=== PATIENT | male | born 1965 | race Caucasian/White ===

== ENCOUNTER 2025-05-05 12:06 | Observation (INO) | payer OTHER, SELFPAY ==
[2025-05-05] VITALS (12 sets, daily range): BP systolic 129–159; BP diastolic 74–89; PULSE 72–84; RESP 16–20; TEMP 36.7–36.9; O2SAT 95–99; BMI 34.8
--- NOTE | ~2025-05-05 | XR_ITS ---
EXAMINATION: XR chest 2V DATE: 05/05/2025 12:59 INDICATION: Chest pressure TECHNIQUE: PA and lateral views of the chest were obtained. COMPARISON: None FINDINGS: Calcified nodule left midlung zone consistent with old granulomatous disease. The cardiomediastinal silhouette is normal. Mild thoracic spondylosis with chronic mild anterior wedging of a few lower thoracic vertebral bodies. IMPRESSION: 1. No acute cardiopulmonary disease. Reviewed, dictated and finalized at location [facility]
--- NOTE | 2025-05-05 12:06 | ECG_ITS ---
Test Date: 2025-05-05 12:14:21 Measurements Intervals [place] Rate: 77 P: 41 [place]: 148 QRS: -1 QRSD: 85 T: 31 QT: 365 QTc: 413 Interpretive Statements SINUS RHYTHM LOW QRS VOLTAGE IN PRECORDIAL LEADS POSSIBLE RIGHT VENTRICULAR CONDUCTION DELAY BORDERLINE ECG No previous ECG available for comparison Electronically Signed On 05-05-2025 12:15:19 JEWELRY DRILLING MACHINE OPERATOR by Flavio Mckeon D.O.
[2025-05-05 12:36] LABS: Hematocrit 43.4 % (42.0-52.0); Hemoglobin 14.9 g/dL (14.0-18.0); Immature Granulocyte Percent A 0.3 % (0-0.5); Lymphocytes Absolute Auto 1.22 K/mm3 (0.9-3.2); Mean Corpuscular HGB Conc 34.3 g/dl (32-36); Mean Corpuscular Hemoglobin 28.9 pg (26-34); Mean Corpuscular Volume 84.1 fl (80-100); Nucleated Red Blood Cells Absolute Auto 0.000 K/mm3 (0.0-0.012); Nucleated Red Blood Cells Perc 0.0 % (0.0-0.2); Platelet Count Result 221 k/mm3 (150-375); Red Blood Count 5.16 M/mm3 (4.6-6.20); White Blood Count 6.3 K/mm3 (4.5-10.0)
[2025-05-05 12:49] LABS: Alanine Aminotransferase 27 U/L (6-50); Albumin Level 4.6 g/dL (3.5-5.1); Alkaline Phosphatase 56 U/L (38-126); Anion Gap 9 mmol/L (4-12); Aspartate Amino Transferase 31 U/L (17-59); Bilirubin,Total 0.6 mg/dL (0.2-1.3); Blood Urea Nitrogen 20 mg/dL (9-20); Calcium 9.1 mg/dL (8.4-10.2); Carbon Dioxide 25 mmol/L (22-30); Chloride 103 mmol/L (98-107); Estimated CRCL calculation 92 ml/min; Estimated Glomerular Filt Rate > 60; Glucose 131 mg/dL (65-110); Lipase 82 U/L (23-300); Potassium 4.1 mmol/L (3.4-5.0); Sodium 137 mmol/L (137-145); Total Protein 7.7 g/dL (6.3-8.2)
[2025-05-05 12:51] LABS: INR 1.0; Prothrombin Time 12.7 Seconds (11.1-14.7)
[2025-05-05 12:52] LABS: Partial Thromboplastin Time 25.4 Seconds (22.3-36.8)
[2025-05-05 13:00] LABS: Troponin I < 0.012 ng/mL (0.000-0.034)
--- NOTE | 2025-05-05 14:36 | ED.CHESTPAIN ---
HPI - Chest Pain General Chief Complaint: Chest Pain <KAMARI Cordova Last Filed: 05/05/25 14:48> Stated Complaint: chest pain <KAMARI Cordova Last Filed: 05/05/25 14:48> Time Seen by Provider: 05/05/25 14:36 <Michelle Noe PA-C - Last Filed: 05/05/25 14:48> Focused HPI: Patient is a 60 y/o male who presents to the ED with c/o CP. Patient reports he was carrying a table up his stairs around noon today when he began having midsternal chest tightness, radiated through to his back between his shoulder blades. States pain lasted approx 10-15 minutes before improving. Feels slight discomfort in midsternal chest currently. Denied feeling SOB, dizzy, nauseous, diaphoretic with the pain. States 1 week ago, had a similar episode of chest pain while cutting firewood. Patient reports hx of HTN. Denies hx of HLD, DM, smoking, FHx heart disease. GENERAL: Well-appearing, obese with BMI of 34.2, and in no acute distress. HEAD: Normocephalic, atraumatic. CHEST: Clear to auscultation. ?No respiratory distress. HEART: Regular rate and rhythm.? NEURO: ?Alert and oriented x3. Patient screened in triage and initial orders placed.? ?Additional care and disposition to be based upon?diagnostic testing and treatment. <KAMARI Cordova Last Filed: 05/05/25 14:48> Focused HPI: Patient is a 60 y/o male who presents to the ED with c/o CP. Patient reports he was carrying a table up his stairs around noon today when he began having midsternal chest tightness, radiated through to his back between his shoulder blades. States pain lasted approx 10-15 minutes before improving. Feels slight discomfort in midsternal chest currently. Denied feeling SOB, dizzy, nauseous, diaphoretic with the pain. States 1 week ago, had a similar episode of chest pain while cutting firewood. Patient reports hx of HTN, family history of heart disease. Denies hx of HLD, DM, smoking GENERAL: Well-appearing, obese with BMI of 34.2, and in no acute distress. HEAD: Normocephalic, atraumatic. CHEST: Clear to auscultation. ?No respiratory distress. HEART: Regular rate and rhythm.? NEURO: ?Alert and oriented x3. Patient screened in triage and initial orders placed.? ?Additional care and disposition to be based upon?diagnostic testing and treatment. <Marianne Live PA-C - Last Filed: 05/05/25 19:40> Source: patient <Michelle Noe PA-C - Last Filed: 05/05/25 14:48> Mode of arrival: ambulatory <Michelle Noe PA-C - Last Filed: 05/05/25 14:48> Limitations: no limitations <Michelle Noe PA-C - Last Filed: 05/05/25 14:48> Related Data Allergies/Adverse Reactions: Allergies Allergy/AdvReac Type Severity Reaction Status Date / Time No Known Allergies Allergy Verified 05/05/25 21:32 <Michelle Noe PA-C - Last Filed: 05/05/25 14:48> Review of Systems Review of Systems: All systems reviewed & are unremarkable except as noted in HPI and below <Marianne Live PA-C - Last Filed: 05/05/25 19:40> [facility] Past Medical History Medical History: Medical History (Updated 05/05/25 @ 22:31 by Emily Kerr APRN) BMI 36.0-36.9,adult BMI 34.0-34.9,adult Benign essential hypertension <Michelle Noe PA-C - Last Filed: 05/05/25 14:48> Family History Family History: Family History Grandparent Diabetes mellitus Father Hypertension Mother Hypertension Dementia Diabetes mellitus Sibling No problems noted. <Michelle Noe PA-C - Last Filed: 05/05/25 14:48> Social History Social History: Social History (Updated 08/11/24 @ 14:28 by NOAM Dee) Smoking status: Never smoker Second hand tobacco smoke exposure: No Alcohol intake: current Drinks per week: 2 Substance use: never Substance use type: does not use Lack of Transportation: No Lack of Food: Never True Current Housing: I Have Housing Concerned About Future Housing: No Difficulty Paying Gas/Electric Bills: No Difficulty Paying for Meds: No Currently Unemployed: No Education: Associate Degree Difficulty w/ Childcare or Family Care: No Living arrangements: with family Occupation/Education: occupation 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 HEAD: Normocephalic, atraumatic. EYES: EOMI. ENT: Nares clear, no rhinorrhea or epistaxis. Mucous membranes moist. Oropharynx without tonsillar hypertrophy exudate or other lesions. CHEST: Clear to auscultation. No respiratory distress. No wheezes rales or rhonchi HEART: Regular rate and rhythm. No murmur heard. Normal peripheral pulses. ABDOMEN: Soft, nontender, nondistended, normal active bowel sounds. EXTREMITIES: Normal range of motion. No edema. SKIN: Warm, dry, no rash. NEURO: No focal deficits. Alert and oriented x3. PSYCH: Normal mood and affect <Marianne Live PA-C - Last Filed: 05/05/25 19:40> Course Vital Signs Vital signs: Vital Signs Temperature 36.7 C 05/05/25 12:17 Pulse Rate 74 05/05/25 12:17 Respiratory Rate 20 05/05/25 12:17 Blood Pressure 159/76 H 05/05/25 12:17 Pulse Oximetry 97 05/05/25 12:17 Temperature 36.3 C L 05/06/25 08:00 Pulse Rate 73 05/06/25 08:00 Respiratory Rate 16 05/06/25 08:00 Blood Pressure 153/82 H 05/06/25 08:00 Pulse Oximetry 97 05/06/25 08:00 Oxygen Delivery Room Air 05/06/25 08:00 <KAMARI Cordova Last Filed: 05/05/25 14:48> Vital Signs Temperature 36.7 C 05/05/25 12:17 Pulse Rate 74 05/05/25 12:17 Respiratory Rate 20 05/05/25 12:17 Blood Pressure 159/76 H 05/05/25 12:17 Pulse Oximetry 97 05/05/25 12:17 Temperature 36.3 C L 05/06/25 08:00 Pulse Rate 73 05/06/25 08:00 Respiratory Rate 16 05/06/25 08:00 Blood Pressure 153/82 H 05/06/25 08:00 Pulse Oximetry 97 05/06/25 08:00 Oxygen Delivery Room Air 05/06/25 08:00 <Marianne Live PA-C - Last Filed: 05/05/25 19:40> Vital Signs Temperature 36.7 C 05/05/25 12:17 Pulse Rate 74 05/05/25 12:17 Respiratory Rate 20 05/05/25 12:17 Blood Pressure 159/76 H 05/05/25 12:17 Pulse Oximetry 97 05/05/25 12:17 Temperature 36.3 C L 05/06/25 08:00 Pulse Rate 73 05/06/25 08:00 Respiratory Rate 16 05/06/25 08:00 Blood Pressure 153/82 H 05/06/25 08:00 Pulse Oximetry 97 05/06/25 08:00 Oxygen Delivery Room Air 05/06/25 08:00 <Ravi Miller MD - Last Filed: 05/10/25 10:23> MDM MDM Narrative Medical decision making narrative: MSE by KENA in triage <Michelle Noe PA-C - Last Filed: 05/05/25 14:48> MSE by KENA in triage Patient presents to the emergency department for exertional chest pain has been ongoing over the last week intermittently. His vitals are stable. CBC metabolic panel without concerning findings. EKG without acute ST changes, baseline and 3 hour troponin are negative. Chest x-ray without acute cardiopulmonary abnormality. Patient's heart score is 5. Will be admitted for further observation <KAMARI Geller Last Filed: 05/05/25 19:40> Differential Diagnosis Differential Diagnosis: angina, NSTEMI, pleurisy, pneumonia, CHF <Marianne Live PA-C - Last Filed: 05/05/25 19:40> Lab Data [facility] Lab Attestation statement: I personally reviewed the patient's lab results. <Marianne Live PA-C - Last Filed: 05/05/25 19:40> Result diagrams: 05/06/25 04:13 05/06/25 04:13 <Michelle Noe PA-C - Last Filed: 05/05/25 14:48> Labs: Lab Results 05/05/25 05/05/25 Range/Units 12:30 15:59 WBC 6.3 (4.5-10.0) K/mm3 RBC 5.16 (4.6-6.20) M/mm3 Hgb 14.9 (14.0-18.0) g/dL Hct 43.4 (42.0-52.0) % MCV 84.1 (80-100) fl MCH 28.9 (26-34) pg MCHC 34.3 (32-36) g/dl RDW 12.9 (11.5-14.5) % Plt Count 221 (150-375) k/mm3 MPV 9.8 (7.4-10.4) fl Immature Gran % (Auto) 0.3 (0-0.5) % Neut % (Auto) 69.1 (45.5-73.1) % Lymph % (Auto) 19.5 (18.3-44.2) % Pitt % (Auto) 9.6 H (2.6-8.5) % Eos % (Auto) 1.3 (0-4.4) % Baso % (Auto) 0.2 (0.2-1.2) % Lymph # (Auto) 1.22 (0.9-3.2) K/mm3 [place] # (Auto) 0.6 (0.1-0.6) K/mm3 Eos # (Auto) 0.1 (0-0.3) K/mm3 Baso # (Auto) 0.0 (0.0-0.1) K/mm3 Abs Immat Gran (auto) 0.02 (0.00-0.031) K/mm3 Absolute Neuts (auto) 4.3 (1.3-6.7) K/mm3 Absolute Nucleated RBC 0.000 (0.0-0.012) K/mm3 Nucleated RBC % 0.0 (0.0-0.2) % PT 12.7 (11.1-14.7) Seconds INR 1.0 APTT 25.4 (22.3-36.8) Seconds Sodium 137 (137-145) mmol/L Potassium 4.1 (3.4-5.0) mmol/L Chloride 103 (98-107) mmol/L Carbon Dioxide 25 (22-30) mmol/L Anion Gap 9 (4-12) mmol/L BUN 20 (9-20) mg/dL Creatinine 0.88 (0.7-1.3) mg/dL Estim Creat Clear Calc 92 ml/min Estimated GFR > 60 (59 - ) Glucose 131 H (65-110) mg/dL Calcium 9.1 (8.4-10.2) mg/dL Total Bilirubin 0.6 (0.2-1.3) mg/dL AST 31 (17-59) U/L ALT 27 (6-50) U/L Alkaline Phosphatase 56 (38-126) U/L Troponin I < 0.012 < 0.012 (0.000-0.034) ng/mL Total Protein 7.7 (6.3-8.2) g/dL Albumin 4.6 (3.5-5.1) g/dL Lipase 82 (23-300) U/L <Michelle Noe PA-C - Last Filed: 05/05/25 14:48> Lab Results 05/05/25 05/05/25 Range/Units 12:30 15:59 WBC 6.3 (4.5-10.0) K/mm3 RBC 5.16 (4.6-6.20) M/mm3 Hgb 14.9 (14.0-18.0) g/dL Hct 43.4 (42.0-52.0) % MCV 84.1 (80-100) fl MCH 28.9 (26-34) pg MCHC 34.3 (32-36) g/dl RDW 12.9 (11.5-14.5) % Plt Count 221 (150-375) k/mm3 MPV 9.8 (7.4-10.4) fl Immature Gran % (Auto) 0.3 (0-0.5) % Neut % (Auto) 69.1 (45.5-73.1) % Lymph % (Auto) 19.5 (18.3-44.2) % Pitt % (Auto) 9.6 H (2.6-8.5) % Eos % (Auto) 1.3 (0-4.4) % Baso % (Auto) 0.2 (0.2-1.2) % Lymph # (Auto) 1.22 (0.9-3.2) K/mm3 Pitt # (Auto) 0.6 (0.1-0.6) K/mm3 Eos # (Auto) 0.1 (0-0.3) K/mm3 Baso # (Auto) 0.0 (0.0-0.1) K/mm3 Abs Immat Gran (auto) 0.02 (0.00-0.031) K/mm3 Absolute Neuts (auto) 4.3 (1.3-6.7) K/mm3 Absolute Nucleated RBC 0.000 (0.0-0.012) K/mm3 Nucleated RBC % 0.0 (0.0-0.2) % PT 12.7 (11.1-14.7) Seconds INR 1.0 APTT 25.4 (22.3-36.8) Seconds Sodium 137 (137-145) mmol/L Potassium 4.1 (3.4-5.0) mmol/L Chloride 103 (98-107) mmol/L Carbon Dioxide 25 (22-30) mmol/L Anion Gap 9 (4-12) mmol/L BUN 20 (9-20) mg/dL Creatinine 0.88 (0.7-1.3) mg/dL Estim Creat Clear Calc 92 ml/min Estimated GFR > 60 (59 - ) Glucose 131 H (65-110) mg/dL Calcium 9.1 (8.4-10.2) mg/dL Total Bilirubin 0.6 (0.2-1.3) mg/dL AST 31 (17-59) U/L ALT 27 (6-50) U/L Alkaline Phosphatase 56 (38-126) U/L Troponin I < 0.012 < 0.012 (0.000-0.034) ng/mL Total Protein 7.7 (6.3-8.2) g/dL Albumin 4.6 (3.5-5.1) g/dL Lipase 82 (23-300) U/L <Marianne Live PA-C - Last Filed: 05/05/25 19:40> Lab Results 05/05/25 05/05/25 Range/Units 12:30 15:59 WBC 6.3 (4.5-10.0) K/mm3 RBC 5.16 (4.6-6.20) M/mm3 Hgb 14.9 (14.0-18.0) g/dL Hct 43.4 (42.0-52.0) % MCV 84.1 (80-100) fl MCH 28.9 (26-34) pg MCHC 34.3 (32-36) g/dl RDW 12.9 (11.5-14.5) % Plt Count 221 (150-375) k/mm3 MPV 9.8 (7.4-10.4) fl Immature Gran % (Auto) 0.3 (0-0.5) % Neut % (Auto) 69.1 (45.5-73.1) % Lymph % (Auto) 19.5 (18.3-44.2) % [place] % (Auto) 9.6 H (2.6-8.5) % Eos % (Auto) 1.3 (0-4.4) % Baso % (Auto) 0.2 (0.2-1.2) % Lymph # (Auto) 1.22 (0.9-3.2) K/mm3 [place] # (Auto) 0.6 (0.1-0.6) K/mm3 Eos # (Auto) 0.1 (0-0.3) K/mm3 Baso # (Auto) 0.0 (0.0-0.1) K/mm3 Abs Immat Gran (auto) 0.02 (0.00-0.031) K/mm3 Absolute Neuts (auto) 4.3 (1.3-6.7) K/mm3 Absolute Nucleated RBC 0.000 (0.0-0.012) K/mm3 Nucleated RBC % 0.0 (0.0-0.2) % PT 12.7 (11.1-14.7) Seconds INR 1.0 APTT 25.4 (22.3-36.8) Seconds Sodium 137 (137-145) mmol/L Potassium 4.1 (3.4-5.0) mmol/L Chloride 103 (98-107) mmol/L Carbon Dioxide 25 (22-30) mmol/L Anion Gap 9 (4-12) mmol/L BUN 20 (9-20) mg/dL Creatinine 0.88 (0.7-1.3) mg/dL Estim Creat Clear Calc 92 ml/min Estimated GFR > 60 (59 - ) Glucose 131 H (65-110) mg/dL Calcium 9.1 (8.4-10.2) mg/dL Total Bilirubin 0.6 (0.2-1.3) mg/dL AST 31 (17-59) U/L ALT 27 (6-50) U/L Alkaline Phosphatase 56 (38-126) U/L Troponin I < 0.012 < 0.012 (0.000-0.034) ng/mL Total Protein 7.7 (6.3-8.2) g/dL Albumin 4.6 (3.5-5.1) g/dL Lipase 82 (23-300) U/L <Ravi Miller MD - Last Filed: 05/10/25 10:23> Imaging Data Radiologist's impression: ITS Impressions Chest X-Ray 05/05/25 13:01 IMPRESSION: 1. No acute cardiopulmonary disease. <Michelle Noe PA-C - Last Filed: 05/05/25 14:48> ITS Impressions Chest X-Ray 05/05/25 13:01 IMPRESSION: 1. No acute cardiopulmonary disease. <Marianne Live PA-C - Last Filed: 05/05/25 19:40> ITS Impressions Chest X-Ray 05/05/25 13:01 IMPRESSION: 1. No acute cardiopulmonary disease. <Ravi Miller MD - Last Filed: 05/10/25 10:23> ECG Data EKG #1: ECG completion date: 05/05/25 <Marianne Live PA-C - Last Filed: 05/05/25 19:40> normal rate, sinus rhythm, no ST changes and normal QT <Marianne Live PA-C - Last Filed: 05/05/25 19:40> Critical Care Time Critical Care Time Critical Care Time: No <Marianne Live PA-C - Last Filed: 05/05/25 19:40> Discharge Plan Discharge Clinical Impression: Chest pain Qualifiers: Chest pain type: unspecified Qualified Code(s): R07.9 - Chest pain, unspecified <Michelle Noe PA-C - Last Filed: 05/05/25 14:48> Patient Disposition: Still a Patient <Michelle Noe PA-C - Last Filed: 05/05/25 14:48> Condition: Stable <Michelle Noe PA-C - Last Filed: 05/05/25 14:48> Quality HEART score for chest pain patients History: highly suspicioius <Marianne Live PA-C - Last Filed: 05/05/25 19:40> ECG: normal <Marianne Live PA-C - Last Filed: 05/05/25 19:40> Age: > 45 and < 65 years <Marianne Live PA-C - Last Filed: 05/05/25 19:40> Risk factors: > or = to 3 risk factors of atherosclerotic disease <Marianne Live PA-C - Last Filed: 05/05/25 19:40> Troponin: < or = to 1x normal limit <Marianne Live PA-C - Last Filed: 05/05/25 19:40> Heart score: 5 <Marianne Live PA-C - Last Filed: 05/05/25 19:40> 5 <Ravi Miller MD - Last Filed: 05/10/25 10:23>
--- NOTE | 2025-05-05 15:33 | ECG_ITS ---
Test Date: 2025-05-05 15:53:14 Measurements Intervals [place] Rate: 70 P: 44 [place]: 164 QRS: 9 QRSD: 77 T: 5 QT: 372 QTc: 403 Interpretive Statements SINUS RHYTHM LOW QRS VOLTAGE IN PRECORDIAL LEADS POSSIBLE RIGHT VENTRICULAR CONDUCTION DELAY BASELINE ARTIFACT- I, II, III, AVR, AVL BORDERLINE ECG Compared to ECG 05/05/2025 12:14:21 NO SIGNIFICANT CHANGE Electronically Signed On 05-05-2025 18:58:04 PRINCIPAL SECURITY ARCHITECT by Flavio Mckeon D.O.
[2025-05-05 16:27] LABS: Troponin I < 0.012 ng/mL (0.000-0.034)
--- NOTE | 2025-05-05 18:35 | ECG_ITS ---
Test Date: 2025-05-05 18:41:53 Measurements Intervals [place] Rate: 69 P: 47 [place]: 157 QRS: 18 QRSD: 85 T: 27 QT: 391 QTc: 419 Interpretive Statements SINUS RHYTHM POSSIBLE RIGHT VENTRICULAR CONDUCTION DELAY BORDERLINE ECG Compared to ECG 05/05/2025 15:53:14 No significant changes Electronically Signed On 05-05-2025 18:50:21 RUBBER GOODS INSPECTOR by Flavio Mckeon D.O.
[2025-05-05 19:21] LABS: Troponin I 0.015 ng/mL (0.000-0.034)
--- NOTE | 2025-05-05 21:03 | WPCEDHO ---
ED Hand Off Checklist All vitals saved:yes IV Site documented:yes All med administrations documented:yes Triage Note Triage Note Pt to ED w/ reports of chest 05/05/25 18:15 pressure that radiates to his shoulder blades as well as SOB. Pt denies N/V, denies dizziness or any other sx's. Onset was while lifting something heavy. Pt reports a similar episode a week ago that began after doing yard work. Pt has PMH of HTN and takes Lisinopril daily. Pain is currently a 2/10 and increases w/ any exertion. Allergies No Known Allergies Allergy (Verified 05/05/25 12:07) Family History (Last Updated 08/11/24 @ 14:27 by Berna Norwood [facility]) Grandparent Diabetes mellitus Father Hypertension Mother Hypertension Dementia Diabetes mellitus Sibling No problems noted. Administered/Completed Medications Discontinued Medications Aspirin (Aspirin 81 Mg Chewable Tablet) 324 mg PO ONCE STA Stop: 05/05/25 12:07 Last Admin: 05/05/25 18:52 Dose: Not Given Documented By: BOBBY Non-Admin Reason: Patient Refuses Interventions/Assessments IV / Saline Lock, Insert Start: 05/05/25 12:06 Freq: STAT Status: Active Protocol: Document 05/05/25 18:50 BOBBY (Rec: 05/05/25 20:06 BOBBY [id number]) IV Assessment Peripheral Access Right Antecubital IV Catheter Access Initiated IV Insertion Date 05/05/25 IV Insertion Time 18:50 Catheter Gauge 20 IV Insertion 1 Attempts Ultrasound Used for No Placement IV Site Assessment WNL IV Care and WNL Maintenance PA: Cardiovascular Assessment Start: 05/05/25 12:06 Freq: Status: Active Protocol: Document 05/05/25 18:15 BOBBY (Rec: 05/05/25 20:07 BOBBY [id number]) Cardiovascular Assessment Cardiovascular None Symptoms PA: Respiratory Assessment Start: 05/05/25 12:06 Freq: Status: Active Protocol: Document 05/05/25 18:15 BOBBY (Rec: 05/05/25 20:07 BOBBY [id number]) Respiratory Assessment Symptoms None Effort Normal Pattern Regular Depth Normal Retractions Intercostal Chest Expansion Symmetrical Adult Capillary Normal/Less than 2 Seconds Refill Oxygen Delivery Pulse Oximetry (90- 97 100) Last Vital Signs Temperature 98.5 F 05/05/25 16:03 Pulse Rate 73 05/05/25 16:03 Respiratory Rate 17 05/05/25 16:03 Pulse Oximetry 97 05/05/25 18:15 Blood Pressure 149/80 H 05/05/25 16:03 Blood Pressure Mean 103 05/05/25 16:03 Blood Pressure Position Sitting 05/05/25 16:03 Weight 102 kg 05/05/25 18:15 Last Result - Abnormals Only [place] % (Auto) 9.6 % (2.6-8.5) H 05/05/25 12:30 Glucose 131 mg/dL (65-110) H 05/05/25 12:30 Most Recent Suicide Severity Rating Suicide Severity Rating NO RISK INDICATED 05/05/25 18:15
--- NOTE | 2025-05-05 21:05 | PC.NURSE ---
Jenni HILARIO in the IMU advised that handoff complete at this time
--- NOTE | 2025-05-05 21:46 | PM.IMHP2 ---
H&P: HPI History of Present Illness Date/Time: 05/05/25 21:46 Chief Complaint: Chest pain Narrative: Andreas Cruz is a 60 year old man hx HTN, who presented to the emergency department for evaluation of chest pain. He reports he was caring a table upstairs by himself around noon, and began having midsternal chest tightness that radiated to his back between his shoulder blades. Pain persisted after stopping activity and lasted about 10-15 minutes, had slight discomfort after that persisted in the ED. No shortness of breath dizziness nausea or diaphoresis. No palpitations. He sometimes reports mild lower extremity edema but not significant currently. A week ago he had a similar episode of chest pain while cutting firewood. No recent illnesses, long travel or other symptoms. In the ER, VSS, afebrile, HR 75-84, RR 16-18, BP 132-147/77-88. He had been prescribed aspirin in the ER but initially declined it because his pain had resolved by then. Explained reason for aspirin and he agreed to take it. Troponin initially undetectable, 0.012<0.015. EKG NSR Review of Systems Review of Systems: All systems reviewed & are unremarkable except as noted in HPI and below PMFSH Past Medical History Medical History (Updated 05/05/25 @ 22:31 by Emily Kerr APRN) BMI 36.0-36.9,adult BMI 34.0-34.9,adult Benign essential hypertension Family History Family History Grandparent Diabetes mellitus Father Hypertension Mother Hypertension Dementia Diabetes mellitus Sibling No problems noted. 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[employer] Gender identity (if verbalized by the patient): Male Spiritual care concerns: No Meds Home Medications and Allergies Home Medications ?Medication ?Instructions ?Recorded ?Confirmed ?Type lisinopril 40 mg tablet See Rx Instructions .Route 11/30/24 05/05/25 Rx .COMPLEX #90 tabs amlodipine 10 mg tablet See Rx Instructions .Route 03/01/25 05/05/25 Rx .COMPLEX #90 tabs Allergies Allergy/AdvReac Type Severity Reaction Status Date / Time No Known Allergies Allergy Verified 05/05/25 21:32 Vital Signs Vital Signs - 24 hr 05/05/25 12:17 05/05/25 16:03 05/05/25 18:15 Temperature 98.1 F 98.5 F Pulse Rate 74 73 Respiratory Rate 20 17 Blood Pressure 159/76 H 149/80 H Pulse Oximetry 97 97 97 05/05/25 19:16 05/05/25 19:31 05/05/25 19:46 Temperature Pulse Rate 77 78 72 Respiratory Rate 19 17 17 Blood Pressure 134/89 129/79 139/74 Pulse Oximetry 99 98 96 05/05/25 20:01 05/05/25 20:16 05/05/25 21:04 Temperature Pulse Rate 84 84 82 Respiratory Rate 17 18 16 Blood Pressure 132/77 140/87 142/88 H Pulse Oximetry 98 95 96 Exam Narrative: General - Awake and alert. No acute distress Eyes - PERRLA, EOM intact ENT - No thrush, No erythema Neck - No noticeable or palpable swelling Lymph Nodes - No lymphadenopathy Cardiovascular - RRR no m/r/g, no JVD Lungs: Clear to auscultation, No wheezing, no use of accessory muscles, no crackles Skin - Skin warm and dry, no wounds or rashes Abdomen - Normal bowel sounds, abdomen soft and nontender Extremities - No edema, cyanosis or clubbing Musculoskeletal - 5/5 strength, normal range of motion, no swollen or erythematous joints. Neurological ? Alert and oriented x 3, CN 2-12 grossly intact. Psych: Normal mood and affect Results Labs Labs: Short CBC 05/05/25 Range/Units 12:30 WBC 6.3 (4.5-10.0) K/mm3 Hgb 14.9 (14.0-18.0) g/dL Hct 43.4 (42.0-52.0) % Plt Count 221 (150-375) k/mm3 BMP 05/05/25 12:30 Sodium 137 Potassium 4.1 Chloride 103 Carbon Dioxide 25 BUN 20 Creatinine 0.88 Glucose 131 H Calcium 9.1 Cardiac Enzymes 05/05/25 05/05/25 05/05/25 Range/Units 12:30 15:59 18:50 Troponin I < 0.012 < 0.012 0.015 D (0.000-0.034) ng/mL Liver Function 05/05/25 Range/Units 12:30 Total Bilirubin 0.6 (0.2-1.3) mg/dL AST 31 (17-59) U/L ALT 27 (6-50) U/L Alkaline Phosphatase 56 (38-126) U/L Albumin 4.6 (3.5-5.1) g/dL Quality VTE Prophylaxis VTE prophylaxis: pharmacologic ordered Assessment and Plan Assessment and plan (1) Chest pain: Qualifiers: Chest pain type: unspecified Qualified Code(s): R07.9 - Chest pain, unspecified Code(s): R07.9 - Chest pain, unspecified Status: Acute Assessment and Plan: Chest pain currently resolved Differential includes hypertensive response to exertion, musculoskeletal, less likely stable angina. No shortness of breath. No features concerning for acute coronary syndrome or aortic dissection. Chest x-ray was normal. Initial troponin <0.012, second 0.015. --Cardiology consult. Consider stress test vs outpatient. --TTE --s/p 325 ASA, continue 81mg daily --Monitor on tele --Treatment of HTN as noted --Repeat troponin --Check lipid profile, HgbA1c --Lovenox for DVT prophylaxis --NPO in AM, Resume low fat diet if no plan for stress test (2) Hypertension: Code(s): I10 - Essential (primary) hypertension Status: Acute Assessment and Plan: BP ranged 132-159/76-89 since admission --Continue home amlodipine 10, lisinopril 40 --Consider adding hctz for discharge given report of intermittent LE edema Time Spent with Patient Time with patient: 45 - 74 minutes Hospitalist MIPS Advance Care Plan I have confirmed that the patient's Advanced Care Plan is present, code status is documented, or surrogate decision maker is listed in patient medical record.: Yes Medication Reconciliation I have utilized all available resources to obtain, update and review the patients current medications (includes all prescriptions, OTC, herbals, cannabis, and nutritional supplements).: Yes
[2025-05-05] MEDS: ASPIRIN 81 MG CHEWABLE TABLET 324 MG PO (21:47)
--- NOTE | 2025-05-05 21:52 | PC.NURSE ---
This patient, Andreas Cruz, was admitted to IMU Room 213-01. Patient/family oriented to hospital policies and general routines including ID bracelet, bed and alarms, visiting hours, pain management, procedures, bathroom and other care routines, personal items, smoking policy, room service/diet, and visiting hours. Information on how to activate the Rapid Response Team has been discussed. Patient/Family are encouraged to report perceived risks to care and to ask questions if they do not understand what they are told or what they should do.
[2025-05-06] VITALS: BP 139/76; PULSE 73; PULSE 86; RESP 16; TEMP 36.6; O2SAT 94
[2025-05-06 02:00] VITALS: PULSE 69
[2025-05-06 04:00] VITALS: PULSE 60
[2025-05-06 04:18] LABS: Hematocrit 43.1 % (42.0-52.0); Hemoglobin 14.8 g/dL (14.0-18.0); Immature Granulocyte Percent A 0.3 % (0-0.5); Lymphocytes Absolute Auto 1.62 K/mm3 (0.9-3.2); Mean Corpuscular HGB Conc 34.3 g/dl (32-36); Mean Corpuscular Hemoglobin 29.4 pg (26-34); Mean Corpuscular Volume 85.5 fl (80-100); Nucleated Red Blood Cells Absolute Auto 0.000 K/mm3 (0.0-0.012); Nucleated Red Blood Cells Perc 0.0 % (0.0-0.2); Platelet Count Result 217 k/mm3 (150-375); Red Blood Count 5.04 M/mm3 (4.6-6.20); White Blood Count 5.9 K/mm3 (4.5-10.0)
[2025-05-06 04:39] VITALS: BP 144/88; PULSE 68; RESP 15; TEMP 36.4; O2SAT 97
[2025-05-06 05:00] LABS: Hemoglobin A1C 5.6 % (<5.7)
[2025-05-06 05:02] LABS: Anion Gap 8 mmol/L (4-12); Blood Urea Nitrogen 19 mg/dL (9-20); Calcium 8.9 mg/dL (8.4-10.2); Carbon Dioxide 26 mmol/L (22-30); Chloride 104 mmol/L (98-107); Cholesterol 208 mg/dL (0-200); Estimated CRCL calculation 82 ml/min; Estimated Glomerular Filt Rate > 60; Glucose 99 mg/dL (65-110); HDL Direct 46 mg/dL; Potassium 4.2 mmol/L (3.4-5.0); Sodium 138 mmol/L (137-145); Triglycerides 156 mg/dL (<150)
[2025-05-06 05:09] LABS: Troponin I < 0.012 ng/mL (0.000-0.034)
[2025-05-06 06:00] VITALS: PULSE 59
--- NOTE | 2025-05-06 07:24 | P.PNIM_ITS ---
Assessment and Plan Assessment and Plan (1) Chest pain: Qualifiers: Chest pain type: unspecified Qualified Code(s): R07.9 - Chest pain, unspecified Code(s): R07.9 - Chest pain, unspecified Status: Acute Assessment and Plan: Chest pain currently resolved Differential includes hypertensive response to exertion, musculoskeletal, less likely stable angina. No shortness of breath. No features concerning for acute coronary syndrome or aortic dissection. Chest x-ray was normal. Initial troponin <0.012, second 0.015. --Cardiology consult. Consider stress test vs outpatient. --TTE --s/p 325 ASA, continue 81mg daily --Monitor on tele --Treatment of HTN as noted --Repeat troponin --Check lipid profile, HgbA1c --Lovenox for DVT prophylaxis --NPO in AM, Resume low fat diet if no plan for stress test trop had been stable currently no chest pain (2) Hypertension: Code(s): I10 - Essential (primary) hypertension Status: Acute Assessment and Plan: BP ranged 132-159/76-89 since admission --Continue home amlodipine 10, lisinopril 40 --Consider adding hctz for discharge given report of intermittent LE edema Medical Record Review I have reviewed the following patient records and this information was taken into consideration when formulating the assessment and plan.: previous labs Time Spent With Patient Time with patient: 25 - 35 minutes Subjective Date/time seen: 05/06/25 07:24 Interval history: Andreas Cruz is a 60 year old man hx HTN, who presented to the emergency department for evaluation of chest pain. He reports he was caring a table upstairs by himself around noon, and began having midsternal chest tightness that radiated to his back between his shoulder blades. Pain persisted after stopping activity and lasted about 10-15 minutes, had slight discomfort after that persisted in the ED. No shortness of breath dizziness nausea or diaphoresis. No palpitations. He sometimes reports mild lower extremity edema but not significant currently. A week ago he had a similar episode of chest pain while cutting firewood. No recent illnesses, long travel or other symptoms. In the ER, VSS, afebrile, HR 75-84, RR 16-18, BP 132-147/77-88. He had been prescribed aspirin in the ER but initially declined it because his pain had resolved by then. Explained reason for aspirin and he agreed to take it. Troponin initially undetectable, 0.012<0.015. EKG NSR 05/06 pt is seen and examined. Cardiology consulted-pending eval. NO chest pain currently. he is comfortable and wants to go home. Review of Systems Review of Systems: All systems reviewed & are unremarkable except as noted in HPI and below Exam Narrative: General - Awake and alert. No acute distress Eyes - PERRLA, EOM intact ENT - No thrush, No erythema Neck - No noticeable or palpable swelling Lymph Nodes - No lymphadenopathy Cardiovascular - RRR no m/r/g, no JVD Lungs: Clear to auscultation, No wheezing, no use of accessory muscles, no crackles Skin - Skin warm and dry, no wounds or rashes Abdomen - Normal bowel sounds, abdomen soft and nontender Extremities - No edema, cyanosis or clubbing Musculoskeletal - 5/5 strength, normal range of motion, no swollen or erythematous joints. Neurological ? Alert and oriented x 3, CN 2-12 grossly intact. Psych: Normal mood and affect Const: General: comfortable Objective Data Vital Signs Vital Signs: Vital Signs - 24 hr 05/05/25 12:17 05/05/25 16:03 05/05/25 18:15 Temperature 98.1 F 98.5 F Pulse Rate 74 73 Respiratory Rate 20 17 Blood Pressure 159/76 H 149/80 H Pulse Oximetry 97 97 97 Oxygen Delivery 05/05/25 19:16 05/05/25 19:31 05/05/25 19:46 Temperature Pulse Rate 77 78 72 Respiratory Rate 19 17 17 Blood Pressure 134/89 129/79 139/74 Pulse Oximetry 99 98 96 Oxygen Delivery 05/05/25 20:01 05/05/25 20:16 05/05/25 21:04 Temperature Pulse Rate 84 84 82 Respiratory Rate 17 18 16 Blood Pressure 132/77 140/87 142/88 H Pulse Oximetry 98 95 96 Oxygen Delivery 05/05/25 21:29 05/05/25 21:30 05/05/25 21:42 Temperature 98.5 F Pulse Rate 84 75 Respiratory Rate 16 Blood Pressure 147/83 H Pulse Oximetry 98 Oxygen Delivery Room Air 05/05/25 21:58 05/05/25 23:56 05/06/25 00:00 Temperature 97.8 F Pulse Rate 72 86 Respiratory Rate 16 Blood Pressure 139/76 Pulse Oximetry 94 Oxygen Delivery Room Air 05/06/25 00:00 05/06/25 02:00 05/06/25 04:00 Temperature Pulse Rate 73 69 Respiratory Rate Blood Pressure Pulse Oximetry Oxygen Delivery Room Air 05/06/25 04:00 05/06/25 04:39 05/06/25 06:00 Temperature 97.6 F Pulse Rate 60 68 59 L Respiratory Rate 15 Blood Pressure 144/88 H Pulse Oximetry 97 Oxygen Delivery Intake/Output Intake/Output: Intake & Output 05/03/25 05/04/25 05/05/25 05/06/25 23:59 23:59 23:59 23:59 Intake Total 550 Output Total 750 Balance -200 Meds/Results Medications: Active Medications Generic Name Dose Route Start Last Admin Trade Name Freq PRN Reason Stop Dose Admin Amlodipine Besylate 10 mg 05/06/25 09:00 Amlodipine Besylate 10 Mg Tablet PO DAILY [facility] Aspirin 81 mg 05/06/25 08:00 Aspirin 81 Mg Chewable Tablet PO DAILY@0800 [facility] Enoxaparin Sodium 40 mg 05/06/25 09:00 Enoxaparin 40 Mg/0.4 Ml Syringe SUB-Q DAILY [facility] Lisinopril 40 mg 05/06/25 09:00 Lisinopril 20 Mg Tablet PO QAM [facility] Perflutren Lipid Microsphere 0 ml 05/05/25 22:18 Perflutren Lipid Microspheres 1.5 Ml Vial Diluted To 10 Ml Total Volume IV PUSH 05/08/25 22:18 ONCE PRN adequate visualization Protocol Radiology Results: ITS Impressions Chest X-Ray 05/05/25 13:01 IMPRESSION: 1. No acute cardiopulmonary disease. Labs Labs: Laboratory Results - last 24 hr 05/05/25 05/05/25 05/05/25 12:30 15:59 18:50 WBC 6.3 RBC 5.16 Hgb 14.9 Hct 43.4 MCV 84.1 MCH 28.9 MCHC 34.3 RDW 12.9 Plt Count 221 MPV 9.8 Immature Gran % (Auto) 0.3 Neut % (Auto) 69.1 Lymph % (Auto) 19.5 [place] % (Auto) 9.6 H Eos % (Auto) 1.3 Baso % (Auto) 0.2 Lymph # (Auto) 1.22 [place] # (Auto) 0.6 Eos # (Auto) 0.1 Baso # (Auto) 0.0 Abs Immat Gran (auto) 0.02 Absolute Neuts (auto) 4.3 Absolute Nucleated RBC 0.000 Nucleated RBC % 0.0 PT 12.7 INR 1.0 APTT 25.4 Sodium 137 Potassium 4.1 Chloride 103 Carbon Dioxide 25 Anion Gap 9 BUN 20 Creatinine 0.88 Estim Creat Clear Calc 92 Estimated GFR > 60 Glucose 131 H Hemoglobin A1c Calcium 9.1 Total Bilirubin 0.6 AST 31 ALT 27 Alkaline Phosphatase 56 Troponin I < 0.012 < 0.012 0.015 D Total Protein 7.7 Albumin 4.6 Triglycerides Cholesterol LDL Cholesterol Direct HDL Direct Lipase 82 05/06/25 04:13 WBC 5.9 RBC 5.04 Hgb 14.8 Hct 43.1 MCV 85.5 MCH 29.4 MCHC 34.3 RDW 13.1 Plt Count 217 MPV 9.9 Immature Gran % (Auto) 0.3 Neut % (Auto) 58.1 Lymph % (Auto) 27.5 [place] % (Auto) 11.4 H Eos % (Auto) 2.4 Baso % (Auto) 0.3 Lymph # (Auto) 1.62 [place] # (Auto) 0.7 H Eos # (Auto) 0.1 Baso # (Auto) 0.0 Abs Immat Gran (auto) 0.02 Absolute Neuts (auto) 3.4 Absolute Nucleated RBC 0.000 Nucleated RBC % 0.0 PT INR APTT Sodium 138 Potassium 4.2 Chloride 104 Carbon Dioxide 26 Anion Gap 8 BUN 19 Creatinine 1.00 Estim Creat Clear Calc 82 Estimated GFR > 60 Glucose 99 Hemoglobin A1c 5.6 Calcium 8.9 Total Bilirubin AST ALT Alkaline Phosphatase Troponin I < 0.012 Total Protein Albumin Triglycerides 156 H Cholesterol 208 H LDL Cholesterol Direct 120 HDL Direct 46 Lipase Quality VTE Prophylaxis VTE prophylaxis: pharmacologic ordered
[2025-05-06 08:00] VITALS: BP 153/82; PULSE 73; PULSE 80; RESP 16; TEMP 36.3; O2SAT 97
[2025-05-06] MEDS: ASPIRIN 81 MG CHEWABLE TABLET PO (08:23)
[2025-05-06] MEDS: ENOXAPARIN 40 MG/0.4 ML SYRINGE SUB-Q (08:23)
--- NOTE | 2025-05-06 09:42 | PM.CNCAR ---
Assessment and Plan Assessment and plan (1) Chest pain: Qualifiers: Chest pain type: unspecified Qualified Code(s): R07.9 - Chest pain, unspecified Code(s): R07.9 - Chest pain, unspecified Status: Acute Plan This is a 60-year-old man with hypertension and 2 recent episodes of exertional chest pain concerning for angina. He does not have any symptoms with modest activity. His electrocardiograms are benign his troponin levels show no evidence of acute coronary syndrome. He is clinically stable at this time. Low-dose aspirin has been added to his medical regimen which is appropriate. Stress testing as an outpatient should be arranged and I will see to the my office reach out to him after the to arrange for this. In my opinion he is stable for discharge. He should be advised to restrict himself to sedentary activity until testing is completed Andreas Nelson MD [facility] History of Present Illness History of Present Illness Consult date/time: 05/06/25 09:42 Reason For Visit: Chest pain Narrative: This is a very pleasant 60-year-old man I am seeing at the request of the hospitalist today because of chest pain. He is not known to have any cardiac problems prior to this he reports that he came to the emergency room yesterday with some chest pain that occurred after he was exerting himself carrying a table up the stairs in his home. He says that about a week ago he had a episode of this symptom which he describes as a substernal tightness with some radiation to the interscapular area. The symptoms then occurred after he was doing some work on a wood pile outside of his house. He felt well after 5-10 minutes of resting. Yesterday he was carrying a folding table up the stairs from his basement preparing for and after that had another episode of these symptoms. He came to the emergency room for evaluation. By the time he got here he was of course asymptomatic his ER evaluation was negative his ECGs look normal he has had 4 troponin draws which are also unremarkable. He feels well at this time and offers no complaints he does have a history of hypertension for which he takes amlodipine with lisinopril. He reports no history of diabetes or dyslipidemia. He follows regularly with his PCP for blood pressure management. He has had no major illnesses or surgical operations. Coronary heart disease is not prevalent in his family at a premature age. He is not having any palpitations orthopnea PND or accumulating edema. Review of Systems Constitutional: Constitutional: Reports no additional constitutional complaints Eyes: Eyes: Reports no additional eye complaints ENT: Reports system reviewed and no additional complaints, except as documented Cardiovascular: Cardiovascular: Reports as per HPI Respiratory: Respiratory: Reports as per HPI Gastrointestinal: Gastrointestinal: Reports no additional gastrointestinal complaints Musculoskeletal: Musculoskeletal: Reports no additional musculoskeletal complaints Integumentary/Breasts: Skin/Breast: Reports system reviewed and no additional complaints, except as docu Neurologic: Reports system reviewed and no additional complaints, except as documented Endocrine: Endocrine: Reports no additional endocrine complaints Hematologic/Lymphatic: Hematologic/Lymphatic: Reports no additional hematologic/lymphatic complaints Allergic/Immunologic: Allergic/Immunologic: Reports no additional allergic/immunologic complaints [facility] Past Medical History Medical History (Updated 05/05/25 @ 22:31 by Emily Kerr APRN) BMI 36.0-36.9,adult BMI 34.0-34.9,adult Benign essential hypertension Family History Family History Grandparent Diabetes mellitus Father Hypertension Mother Hypertension Dementia Diabetes mellitus Sibling No problems noted. 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 Gender identity (if verbalized by the patient): Male Spiritual care concerns: No Meds Home Medications and Allergies Home Medications ?Medication ?Instructions ?Recorded ?Confirmed ?Type lisinopril 40 mg tablet See Rx Instructions .Route 11/30/24 05/05/25 Rx .COMPLEX #90 tabs amlodipine 10 mg tablet See Rx Instructions .Route 03/01/25 05/05/25 Rx .COMPLEX #90 tabs Allergies Allergy/AdvReac Type Severity Reaction Status Date / Time No Known Allergies Allergy Verified 05/05/25 21:32 Vital Signs Vital Signs - 24 hr 05/05/25 12:17 05/05/25 16:03 05/05/25 18:15 Temperature 36.7 C 36.9 C Pulse Rate 74 73 Respiratory Rate 20 17 Blood Pressure 159/76 H 149/80 H Pulse Oximetry 97 97 97 Oxygen Delivery 05/05/25 19:16 05/05/25 19:31 05/05/25 19:46 Temperature Pulse Rate 77 78 72 Respiratory Rate 19 17 17 Blood Pressure 134/89 129/79 139/74 Pulse Oximetry 99 98 96 Oxygen Delivery 05/05/25 20:01 05/05/25 20:16 05/05/25 21:04 Temperature Pulse Rate 84 84 82 Respiratory Rate 17 18 16 Blood Pressure 132/77 140/87 142/88 H Pulse Oximetry 98 95 96 Oxygen Delivery 05/05/25 21:29 05/05/25 21:30 05/05/25 21:42 Temperature 36.9 C Pulse Rate 84 75 Respiratory Rate 16 Blood Pressure 147/83 H Pulse Oximetry 98 Oxygen Delivery Room Air 05/05/25 21:58 05/05/25 23:56 05/06/25 00:00 Temperature 36.6 C Pulse Rate 72 86 Respiratory Rate 16 Blood Pressure 139/76 Pulse Oximetry 94 Oxygen Delivery Room Air 05/06/25 00:00 05/06/25 02:00 05/06/25 04:00 Temperature Pulse Rate 73 69 Respiratory Rate Blood Pressure Pulse Oximetry Oxygen Delivery Room Air 05/06/25 04:00 05/06/25 04:39 05/06/25 06:00 Temperature 36.4 C Pulse Rate 60 68 59 L Respiratory Rate 15 Blood Pressure 144/88 H Pulse Oximetry 97 Oxygen Delivery 05/06/25 08:00 Temperature 36.3 C L Pulse Rate 80 Respiratory Rate 16 Blood Pressure 153/82 H Pulse Oximetry 97 Oxygen Delivery Exam Const: General: comfortable and no acute distress Other: Very pleasant overweight man no apparent distress of any kind HENMT: Mouth: Yes moist mucous membranes Eyes: Sclera: sclerae normal Neck: Neck: supple and no JVD Resp: Effort & Inspection: normal respiratory effort Auscultation: clear to auscultation bilaterally Cardio: Rate: regular rate Rhythm: regular rhythm Other: No audible murmur gallop or rub GI: GI Palp: Yes Soft to palpation Auscultation: normal bowel sounds Skin: General skin exam: normal color Extrem: General: normal to inspection Results Labs and Meds 05/06/25 04:13 05/06/25 04:13 Lab results: Cardiac Enzymes 05/05/25 05/05/25 05/05/25 Range/Units 12: 15:59 18:50 AST 31 (17-59) U/L Troponin I < 0.012 < 0.012 0.015 D (0.000-0.034) ng/mL 05/06/25 Range/Units 04:13 AST (17-59) U/L Troponin I < 0.012 (0.000-0.034) ng/mL Coagulation 05/05/25 Range/Units 12: PT 12.7 (11.1-14.7) Seconds APTT 25.4 (22.3-36.8) Seconds Lipids 05/06/25 Range/Units 04:13 Triglycerides 156 H (<150) mg/dL Cholesterol 208 H (0-200) mg/dL CBC 05/05/25 05/06/25 Range/Units 12:30 04:13 WBC 6.3 5.9 (4.5-10.0) K/mm3 RBC 5.16 5.04 (4.6-6.20) M/mm3 Hgb 14.9 14.8 (14.0-18.0) g/dL Hct 43.4 43.1 (42.0-52.0) % Plt Count 221 217 (150-375) k/mm3 Lymph # (Auto) 1.22 1.62 (0.9-3.2) K/mm3 [place] # (Auto) 0.6 0.7 H (0.1-0.6) K/mm3 Eos # (Auto) 0.1 0.1 (0-0.3) K/mm3 Baso # (Auto) 0.0 0.0 (0.0-0.1) K/mm3 Comprehensive Metabolic Panel 05/05/25 05/06/25 Range/Units 12:30 04:13 Sodium 137 138 (137-145) mmol/L Potassium 4.1 4.2 (3.4-5.0) mmol/L Chloride 103 104 (98-107) mmol/L Carbon Dioxide 25 26 (22-30) mmol/L BUN 20 19 (9-20) mg/dL Creatinine 0.88 1.00 (0.7-1.3) mg/dL Glucose 131 H 99 (65-110) mg/dL Calcium 9.1 8.9 (8.4-10.2) mg/dL AST 31 (17-59) U/L ALT 27 (6-50) U/L Alkaline Phosphatase 56 (38-126) U/L Total Protein 7.7 (6.3-8.2) g/dL Albumin 4.6 (3.5-5.1) g/dL Intake and Output 05/05/25 05/06/25 05/06/25 23:59 07:59 15:59 Intake Total 550 480 Output Total 750 Balance -200 480 Intake: Oral 550 480 Output: Urine 750 Patient Weight 05/06/25 23:59 Weight 103.9 kg
--- NOTE | 2025-05-06 09:53 | P.DS_ITS ---
DS: Admitting Diagnosis Discharge Date 05/06 Admitting Diagnosis chest pain DS: Discharge Diagnosis Discharge Diagnosis (1) Chest pain: Qualifiers: Chest pain type: unspecified Qualified Code(s): R07.9 - Chest pain, unspecified Code(s): R07.9 - Chest pain, unspecified Status: Acute (2) Hypertension: Code(s): I10 - Essential (primary) hypertension Status: Acute DS: Summary Hospital Course Hospital Course: Andreas Cruz is a 60-year-old male with a history of hypertension who presented to the emergency department for evaluation of chest pain. He reported two episodes of exertional chest discomfort, most recently occurring at approximately noon while carrying a table upstairs by himself, at which time he developed midsternal chest tightness radiating to his back between the shoulder blades. The pain persisted for approximately 10-15 minutes despite cessation of activity, with mild residual discomfort on arrival to the ED. He denied associated shortness of breath, dizziness, nausea, diaphoresis, or palpitations. He noted a similar episode one week prior while cutting firewood. He reports occasional mild lower extremity edema, though this was not significant on presentation. In the emergency department, vital signs were stable with heart rate 75-84 bpm, respiratory rate 16-18, blood pressure 132-147/77-88 mmHg, and he remained afebrile. Laboratory workup revealed initially undetectable troponin with subsequent level of 0.012 (<0.015), and electrocardiogram showed normal sinus rhythm without acute ischemic changes. Cardiology was consulted and determined the patient to be clinically stable without evidence of acute coronary syndrome, though his presentation was concerning for angina. Low-dose aspirin was appropriately initiated after patient education. Cardiology saw pt and he was stable for discharge with plan for outpatient stress testing to be arranged by cardiology following the . He has been advised to restrict himself to sedentary activity until testing is completed, and cardiology will contact him to schedule follow-up evaluation and testing. Of note- lipid profole showed total cholesterol 208- pt wants to discuss it with his PCP and start statin therapy Time Spent with Patient Time attestation: Total time spent providing and/or coordinating discharge services: Exam 2 Narrative: General - Awake and alert. No acute distress Eyes - PERRLA, EOM intact ENT - No thrush, No erythema Neck - No noticeable or palpable swelling Lymph Nodes - No lymphadenopathy Cardiovascular - RRR no m/r/g, no JVD Lungs: Clear to auscultation, No wheezing, no use of accessory muscles, no crackles Skin - Skin warm and dry, no wounds or rashes Abdomen - Normal bowel sounds, abdomen soft and nontender Extremities - No edema, cyanosis or clubbing Musculoskeletal - 5/5 strength, normal range of motion, no swollen or erythematous joints. Neurological ? Alert and oriented x 3, CN 2-12 grossly intact. Psych: Normal mood and affect Const: General: comfortable DS: Data Data Completed and Pending Labs on day of discharge: Labs from last 24 hours 05/06/25 05/05/25 05/05/25 04:13 18:50 15:59 WBC 5.9 RBC 5.04 Hgb 14.8 Hct 43.1 MCV 85.5 MCH 29.4 MCHC 34.3 RDW 13.1 Plt Count 217 MPV 9.9 Immature Gran % (Auto) 0.3 Neut % (Auto) 58.1 Lymph % (Auto) 27.5 [place] % (Auto) 11.4 H Eos % (Auto) 2.4 Baso % (Auto) 0.3 Lymph # (Auto) 1.62 [place] # (Auto) 0.7 H Eos # (Auto) 0.1 Baso # (Auto) 0.0 Abs Immat Gran (auto) 0.02 Absolute Neuts (auto) 3.4 Absolute Nucleated RBC 0.000 Nucleated RBC % 0.0 PT INR APTT Sodium 138 Potassium 4.2 Chloride 104 Carbon Dioxide 26 Anion Gap 8 BUN 19 Creatinine 1.00 Estim Creat Clear Calc 82 Estimated GFR > 60 Glucose 99 Hemoglobin A1c 5.6 Calcium 8.9 Total Bilirubin AST ALT Alkaline Phosphatase Troponin I < 0.012 0.015 D < 0.012 Total Protein Albumin Triglycerides 156 H Cholesterol 208 H LDL Cholesterol Direct 120 HDL Direct 46 Lipase 05/05/25 12:30 WBC 6.3 RBC 5.16 Hgb 14.9 Hct 43.4 MCV 84.1 MCH 28.9 MCHC 34.3 RDW 12.9 Plt Count 221 MPV 9.8 Immature Gran % (Auto) 0.3 Neut % (Auto) 69.1 Lymph % (Auto) 19.5 [place] % (Auto) 9.6 H Eos % (Auto) 1.3 Baso % (Auto) 0.2 Lymph # (Auto) 1.22 [place] # (Auto) 0.6 Eos # (Auto) 0.1 Baso # (Auto) 0.0 Abs Immat Gran (auto) 0.02 Absolute Neuts (auto) 4.3 Absolute Nucleated RBC 0.000 Nucleated RBC % 0.0 PT 12.7 INR 1.0 APTT 25.4 Sodium 137 Potassium 4.1 Chloride 103 Carbon Dioxide 25 Anion Gap 9 BUN 20 Creatinine 0.88 Estim Creat Clear Calc 92 Estimated GFR > 60 Glucose 131 H Hemoglobin A1c Calcium 9.1 Total Bilirubin 0.6 AST 31 ALT 27 Alkaline Phosphatase 56 Troponin I < 0.012 Total Protein 7.7 Albumin 4.6 Triglycerides Cholesterol LDL Cholesterol Direct HDL Direct Lipase 82 Discharge Plan Discharge Attending physician on discharge: Yunier Paige Consulting providers: Andreas Nelson Discharging Clinician: Courtney Kerr Patient Disposition: Home Activity: september shower Diet: heart healthy Discharge Instructions: Why You Were in the Hospital: You came to the emergency department because you had chest pain. You also had a similar episode of chest pain one week ago while cutting firewood. We evaluated you for possible heart problems. Test Results: Your heart tests (EKG and troponin blood test) did not show a heart attack. However, your symptoms are concerning for angina, which means your heart may not be getting enough blood flow during physical activity. Your total cholesterol level is elevated at 208 mg/dL, which increases your risk for heart disease. Activity Restrictions: * Do NOT do any strenuous physical activity until you complete stress testing * Limit yourself to light, sedentary activities only (walking around the house, light household tasks) * Do NOT lift heavy objects, do yard work, or participate in vigorous exercise * Avoid stairs when possible Medications: * Low-dose aspirin - Take daily as prescribed to protect your heart * Continue your blood pressure medication as prescribed * You will need to start a statin medication - Discuss this with your primary care doctor to lower your cholesterol and reduce your risk of heart attack and stroke Follow-Up Appointments: * Cardiology - The cardiology office will call you after [place] to schedule a stress test. This is very important - do not miss this appointment. * Primary Care Doctor - Schedule an appointment within 1-2 weeks to: * Discuss your cholesterol results (total cholesterol 208) * Start statin therapy to reduce your ASCVD (heart disease and stroke) risk * Follow up on your blood pressure management When to Return to the Emergency Department or Call 911: * Chest pain or pressure that lasts more than 5 minutes * Chest pain that does not improve with rest * Severe shortness of breath * Pain radiating to your arm, jaw, or back * Dizziness, fainting, or feeling like you might pass out * Rapid or irregular heartbeat * Do not wait - call 911 immediately if you have these symptoms Patient Instructions: Antibiotic Form, Aspirin (By mouth), Chest Pain (DC), Heart Healthy Diet (DC), Hypertension (DC), Hyperlipidemia (DC) Patient Language: Frisian Stand Alone Forms: General Discharge Information Follow-up/Referrals: Andreas Nelson MD [Physician, Cardiology] - 2 Weeks Dae Baig DO [Primary Care Provider, Internal Medicine] - 2 Weeks Discharge Medications: New aspirin 81 mg tablet,chewable 81 mg PO DAILY Qty: 30 0RF Continued lisinopril 40 mg tablet See Rx Instructions .ROUTE .COMPLEX Qty: 90 3RF Dose Instruction: TAKE 1 TABLET BY MOUTH EVERY DAY Rx Instructions: TAKE 1 TABLET BY MOUTH EVERY DAY amlodipine 10 mg tablet See Rx Instructions .ROUTE .COMPLEX Qty: 90 3RF Dose Instruction: TAKE 1 TABLET BY MOUTH DAILY Rx Instructions: TAKE 1 TABLET BY MOUTH DAILY Date of admission: 05/05/25 18:47 Primary Care Provider: Dae Baig Admitting Provider: Yunier Paige Attending physician on admission: Yunier Paige Condition: Stable Quality VTE Prophylaxis VTE prophylaxis: pharmacologic ordered
--- NOTE | 2025-05-06 10:20 | PC.NURSE ---
Reviewed all discharge instructions with patient. Verbalizes understanding at this time. satellite project site monitor removed and IV access removed intact. No acute distress noted at this time.
== END 2025-05-06 11:15 | disposition home or self-care (01) ==
LOC: ANHED 19:38 → ANHIMU 20:31
PROVIDERS: Emergency Medicine; Nurse Practitioner Acute Care; Admitting Provider Internal Medicine; Emergency Provider Physician Assistant; PCP Internal Medicine; Visit Provider Internal Medicine
DX: R07.9 Chest pain, unspecified (principal); I10 Essential (primary) hypertension; Z82.49 Family history of ischemic heart disease and other diseases of the circulatory system; Z83.3 Family history of diabetes mellitus
CPT/HCPCS: 36415; 71046; 80048; 80053; 80061; 83036; 83690; 84484; 85025; 85610; 85730; 93005; 96372; 99285; A9270; G0378; J1650